=== PATIENT | male | born 1965 | race Caucasian/White ===

== ENCOUNTER → 2019-11-14 | Outpatient (CLI) | payer BC ==
--- NOTE | 2019-11-14 09:23 | US ---
EXAMINATION TYPE: US prostate transrectal DATE OF EXAM: 11/14/2019 COMPARISON: 11/14/2019 CLINICAL HISTORY: R97.20 elevated psa levels. This examination was performed using the transrectal probe. EXAM MEASUREMENTS: Gland Size: 4.9 x 3.0 x 6.1cm Volume: 46.4 Predicted PSA: 5.6 Actual PSA (if available): 4.6 Heterogeneous gland, no evident masses. IMPRESSION: Enlarged and diffusely heterogenous prostate gland. No suspicious sonographic masses. Predicted PSA = volume x 0.12 ng/ml Calculated Volume = 0.5236 x L x W x H
== END | disposition home or self-care (01) ==
LOC: RADUSWWP 07:45
PROVIDERS: ATTEND Internal Medicine
DX: N40.0 Benign prostatic hyperplasia without lower urinary tract symptoms (principal)
CPT/HCPCS: 76872